=== PATIENT | male | born 1960 | race Caucasian/White ===

== ENCOUNTER 2018-03-06 03:51 | Emergency (ER) | payer MEDICARE, SELFPAY ==
[2018-03-06 03:52] VITALS: BP 170/95; PULSE 83; RESP 16; TEMP 36.5; O2SAT 97; BMI 34.1
--- NOTE | 2018-03-06 04:32 | RAD_ITS ---
STUDY: X-RAY - SOFT TISSUE NECK REASON FOR EXAM: Male, 57 years old. Pain TECHNIQUE: 2 view(s) of the neck were obtained. COMPARISON: None. FINDINGS: Normal visualized nasopharynx, oropharynx, hypopharynx. Normal epiglottis. Normal visualized subglottic tracheal air column. Normal prevertebral soft tissue structures. Normal visualized osseous structures. Left carotid calcifications. RAD/Neck for Soft Tissue IMPRESSION: No acute soft tissue abnormality is detected. Electronically Signed: Zackary Vivas MD at 6:01 EDT Tel , Service support ,
--- NOTE | 2018-03-06 04:34 | ED.DCSUM_ITS ---
- ER Visit Summary Date of Service: 03/06/18 Chief Complaint: Sore throat History of Present Illness: The patient is a 57 M 2 day history worsening sore throat. No fevers. No cough. 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 States intermittent flares. However with increasing neck and back pain has been chronic. He is on 60 mg MS Contin twice daily along with breakthrough Percocets written by his PCP. States he has been on this dose for a while. No new injuries. No dyspnea. No nausea or vomiting. Physical Examination: General: Alert and oriented ?3, no acute distress HEENT: Normocephalic, atraumatic. Posterior pharyngeal erythema, no exudates. 2+ symmetric tonsils. Uvula midline. No trismus. Airway patent. Moist mucosa membranes Neck: supple, anterior lymphadenopathy mild tenderness to palpation. No stridor. Cardiovascular: Regular rate and rhythm, no murmurs Respiratory: Normal breath sounds, symmetric, no distress Abdomen: Soft, nontender, nondistended Extremities: Nontender, no edema, pulses intact ?4 Neuro: no focal neurological deficits. Test Results: Rapid strep negative. Soft tissue x-ray neck negative. Emergency Department Course and Treatment: Patient vital signs stable. Posterior pharyngeal erythema noted. Airway patent. She with Decadron. Rapid strep negative. X-ray soft tissue also negative. Patient history of glossopharyngeal neuralgia which may complicate his symptoms. With his back pain and throat pain he was given subcu morphine dosing. States initial improvement of his back however symptoms return. He has been on his pain regimen for a while, discussed or could be a tolerance to his current dosing. However adjustments will need to be performed by his primary care provider who is prescribing the prescriptions. Patient understands. He was discharged with outpatient follow-up. Treatment Plan: [] Disposition: Discharge Impression: 1. Acute pharyngitis 2. Chronic neck and back pain This note was generated with [employer] dictation software. It may contain incorrect words, spelling, and punctuation that were not noted in review of the chart prior to signing ED Disposition - Plan for ED Patient: Disposition: Home or Assisted Living Chief Complaint: Other, Pain/Inj Diagnosis: Acute pharyngitis, History of chronic back pain Instructions: ED Chronic Pain Management, Self-Care for Sore Throats Referrals: Patricio Dave III, MD [Primary Care Provider] - 3-5 Days if not improving
[2018-03-06] MEDS: morphine 10 MG/ML Syringe SC (05:01)
[2018-03-06 06:28] VITALS: BP 168/99; PULSE 78; RESP 16; O2SAT 98
--- NOTE | 2018-03-06 06:29 | ED.RN ---
PT GIVEN WRITTEN AND VERBAL DISCHARGE INSTRUCTIONS. PT VERBALIZES UNDERSTANDING. PT STRONGLY EDUCATED NOT TO DRIVE AFTER HAVING NARCOTIC PAIN MEDICATION. PT REPORTS THAT HE HAS A RIDE COMING, AND AMBULATES OUT OF DEPT WITHOUT ASSISTANCE FROM STAFF.
== END 2018-03-06 06:33 | disposition home or self-care (01) ==
PROVIDERS: Emergency Provider Emergency Medicine; Family Provider Family Medicine; PCP Family Medicine
DX: J02.9 Acute pharyngitis, unspecified (principal); M54.2 Cervicalgia; M54.9 Dorsalgia, unspecified; G89.29 Other chronic pain; I10 Essential (primary) hypertension; Z79.899 Other long term (current) drug therapy
CPT/HCPCS: 70360; 87880; 96372; 99283

== ENCOUNTER 2018-06-01 09:57 | Emergency (ER) | payer MEDICARE, SELFPAY ==
[2018-06-01 09:58] VITALS: BP 180/90; PULSE 76; RESP 16; TEMP 36.9; O2SAT 98; BMI 32.5
--- NOTE | 2018-06-01 10:18 | ED.VISSUMM ---
- ER Visit Summary Date of Service: 06/01/18 Chief Complaint: [Request for medication refill and narcotic withdrawal] History of Present Illness: The patient is a 57 M [presents to the emergency department with complaint of running out of his pain medication yesterday. Patient has been on chronic narcotics for years and has been treated by Dr. Patricio Dave with Oxy Contin and oxycodone. Patient states that he had an insurance issue in November of this year where it took several weeks to approve his OxyContin. Patient at that time was taking extra oxycodone to compensate and therefore has been running out of oxycodone before his prescription is due and running out of his asked the content as he is compensating with OxyContin when his Percocet runs out. Patient is scheduled to go to [facility] tomorrow and attempt to try to come off of some of the narcotics. Patient has history of chronic neck and back pain. Patient has been through pain management. Today patient feeling nauseated and has vomited ?3. Patient states that his arms and legs feel like they are on fire. He denies any new injuries. This is his chronic pain and is no different than usual.] Physical Examination: [HEENT-PERRLA, EOMI. Cranial nerves II through XII grossly intact. TMs clear. Mucous membranes moist. No adenopathy. Cardiovascular-regular rate and rhythm without murmur or ectopy Lungs-clear to auscultation, chest wall stable without crepitus or subcu emphysema Abdomen-normoactive bowel sounds, soft, nontender, no rebound or rigidity, no peritoneal signs. Back exam-patient has diffuse tenderness to the lumbar and thoracic paraspinal musculature. Negative straight leg raises. Deep tendon reflexes plus out of 4 bilaterally in the upper and lower extremities. Extremities-intact ?4, normal range of motion, normal pulses, atraumatic] Test Results: [None indicated] Emergency Department Course and Treatment: [Patient given 1 mg of Dilaudid IM with 4 mg of Zofran IM.] Treatment Plan: [Patient to keep his appointment tomorrow and also to discuss further management with his primary care physician. 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 I did perform an oars report and it was noted that patient has been over the last year getting his prescription medications from Dr. Patricio Dave.] Disposition: [Discharged home in stable condition] Impression: [Narcotic withdrawal Acute exacerbation of chronic back pain] This note was generated with [employer] dictation software. It may contain incorrect words, spelling, and punctuation that were not noted in review of the chart prior to signing ED Disposition - Plan for ED Patient: Chief Complaint: Med Refill Referrals: Patricio Dave III, MD [Primary Care Provider] -
--- NOTE | 2018-06-01 10:23 | ED.DCSUM_ITS ---
- ER Visit Summary Date of Service: 06/01/18 Chief Complaint: [Request for medication refill and narcotic withdrawal] History of Present Illness: The patient is a 57 M [presents to the emergency department with complaint of running out of his pain medication yesterday. Patient has been on chronic narcotics for years and has been treated by Dr. Patricio Dave with Oxy Contin and oxycodone. Patient states that he had an insurance issue in November of this year where it took several weeks to approve his OxyContin. Patient at that time was taking extra oxycodone to compensate and therefore has been running out of oxycodone before his prescription is due and running out of his asked the content as he is compensating with OxyContin when his Percocet runs out. Patient is scheduled to go to [facility] tomorrow and attempt to try to come off of some of the narcotics. Patient has history of chronic neck and back pain. Patient has been through pain management. Today patient feeling nauseated and has vomited ?3. Patient states that his arms and legs feel like they are on fire. He denies any new injuries. This is his chronic pain and is no different than usual.] Physical Examination: [HEENT-PERRLA, EOMI. Cranial nerves II through XII grossly intact. TMs clear. Mucous membranes moist. No adenopathy. Cardiovascular-regular rate and rhythm without murmur or ectopy Lungs-clear to auscultation, chest wall stable without crepitus or subcu emphysema Abdomen-normoactive bowel sounds, soft, nontender, no rebound or rigidity, no peritoneal signs. Back exam-patient has diffuse tenderness to the lumbar and thoracic paraspinal musculature. Negative straight leg raises. Deep tendon reflexes plus out of 4 bilaterally in the upper and lower extremities. Extremities-intact ?4, normal range of motion, normal pulses, atraumatic] Test Results: [None indicated] Emergency Department Course and Treatment: [Patient given 1 mg of Dilaudid IM with 4 mg of Zofran IM.] Treatment Plan: [Patient to keep his appointment tomorrow and also to discuss further management with his primary care physician. 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 I did perform an oars report and it was noted that patient has been over the last year getting his prescription medications from Dr. Patricio Dave.] Disposition: [Discharged home in stable condition] Impression: [Narcotic withdrawal Acute exacerbation of chronic back pain] This note was generated with [employer] dictation software. It may contain incorrect words, spelling, and punctuation that were not noted in review of the chart prior to signing ED Disposition - Plan for ED Patient: Chief Complaint: Med Refill Referrals: Patricio Dave III, MD [Primary Care Provider] -
--- NOTE | 2018-06-01 10:25 | DCINST.ED_ITS ---
ED Disposition - Plan for ED Patient: Chief Complaint: Med Refill Instructions: Med Refill Prescriptions: Oxycodone HCl/Acetaminophen [Percocet 10-325 mg Tablet] 1 tab PO Q6H PRN PRN # 20 tab PRN Reason: Pain Ondansetron [Zofran Odt] 4 mg PO Q8H PRN PRN #10 tab PRN Reason: Nausea Referrals: Patricio Dave III, MD [Primary Care Provider] - 3-5 Days
[2018-06-01] MEDS: Ondansetron 4 MG/2 ML Vial IM (10:30)
[2018-06-01] MEDS: HYDROmorphone 1 MG/ML Syringe IM (10:30)
[2018-06-01 11:02] VITALS: BP 154/85; PULSE 70; RESP 17; O2SAT 95
--- NOTE | 2018-06-01 12:15 | ED.DEP ---
ED Disposition - Plan for ED Patient: Disposition: Home or Assisted Living Chief Complaint: Med Refill Instructions: Med Refill Prescriptions: Hydrocodone/Acetaminophen [[place] 10-325 Tablet] 1 ea PO Q6H PRN PRN #20 tab PRN Reason: Pain Oxycodone HCl/Acetaminophen [Percocet 10-325 mg Tablet] 1 tab PO Q6H PRN PRN #20 tab PRN Reason: Pain Ondansetron [Zofran Odt] 4 mg PO Q8H PRN PRN #10 tab PRN Reason: Nausea Referrals: Patricio Dave III, MD [Primary Care Provider] - 3-5 Days
== END 2018-06-01 11:17 | disposition home or self-care (01) ==
LOC: ED 11:15
PROVIDERS: Emergency Provider Emergency Medicine; Family Provider Family Medicine; PCP Family Medicine
DX: F11.23 Opioid dependence with withdrawal (principal); R11.2 Nausea with vomiting, unspecified; T40.2X5A Adverse effect of other opioids, initial encounter; Y92.9 Unspecified place or not applicable; G89.29 Other chronic pain; M54.2 Cervicalgia; M54.9 Dorsalgia, unspecified; Z79.899 Other long term (current) drug therapy
CPT/HCPCS: 96372; 99282; A4216; J2405

== ENCOUNTER → 2018-06-20 13:28 | Outpatient (CLI) | payer MEDICARE, SELFPAY ==
--- NOTE | 2018-06-20 13:34 | RAD_ITS ---
STUDY: X-RAY - CERVICAL SPINE REASON FOR EXAM: Male, 58 years old. Chronic neck pain. TECHNIQUE: Frontal, lateral, and swimmer's view(s) of the cervical spine were obtained. COMPARISON: None FINDINGS: Normal anterior atlantoaxial articulation. Normal odontoid process. There is straightening of the normal cervical lordosis. Normal vertebral bodies and endplates. Normal disc space heights. The soft tissue structures are unremarkable. There is no demonstrated fracture of the cervical spine. RAD/Cerv Spine 2 or 3 Views IMPRESSION: No fracture. Disc spaces are well preserved. Straightening of the cervical lordosis. Electronically Signed: Riley Fisher MD at 14:52 EDT , Service support ,
--- NOTE | 2018-06-20 13:44 | RAD_ITS ---
STUDY: X-RAY - THORACIC SPINE REASON FOR EXAM: Male, 58 years old. Chronic back pain. TECHNIQUE: Frontal, lateral, and swimmer's view(s) of the thoracic spine were obtained. COMPARISON: None. FINDINGS: Normal kyphosis of the thoracic spine. There is no substantial scoliosis. There is mild multilevel endplate spondylosis of the thoracic vertebrae. Normal disc space heights. There is no fracture. The soft tissue structures are unremarkable. RAD/Thoracic Spine 2 Views IMPRESSION: Mild spurring. No fracture. Electronically Signed: Riley Fisher MD at 14:53 EDT , Service support ,
== END ==
PROVIDERS: Family Provider Family Medicine; PCP Family Medicine; Visit Provider Anesthesiology Pain Medicine
DX: M54.2 Cervicalgia (principal); M54.9 Dorsalgia, unspecified
CPT/HCPCS: 72040; 72070

== ENCOUNTER 2018-08-02 08:30 | Outpatient (RCR) | payer MEDICARE, SELFPAY ==
--- NOTE | 2018-07-22 08:27 | HP.PTEVAL ---
Patient's Visit Information ARLETTE TURNER is a 58 year old M referred to Physical Therapy by Lacie Alba with a diagnosis of arm and neck pain. Date of Evaluation: 07/22/18 Physical Therapist: Evgeny Thomas, PT, - Visit Plan Frequency: 2x /Week Duration: 4 Weeks Plan: C/S Tx, DTR, scap stab ex's, postural edu, and HEP - Subjective Subjective: Pt reports he has had upper L back pain for at least 10 years. Pt notes he had 2 brain surgeries in the past, 15-20 years ago respectively due to cranial neuralgia on 7th and 9th cranial nerve. Pt notes his L upper back pain remains constant, but he notes the more work he does, the worse it gets. Pt reports after a hard days work, he hurts worse the next day. Pain is described as a bad ache that sometimes ojeda. Pt denies neck pain on this date, but notes his L neck is very stiff. Pt notes sleep difficulty secondary to the pain. Pt has had recent xrays, but he has no heard back from him. Pt reports he received and injection into his upper L back about a month ago, and notes that it helped his back pain, but caused him to have pain in the L UE from his shoulder to his hand. 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 B bicepital reflex= 1/3. Palpation: Pt is tender along the T/S in the interscapular region. There is also sig muscle guarding along the cervical spine. No obvious deformity present this date. ROM: C/S is limited most with retraction, L SB, L rot. All other movements are WNL. MMT: B UE is 5/5 throughout, but L UE provokes pain in his L upper back. Repeated movements: protraction 10x2 radiates sx's into L upper back., retraction 10x2 radiates sx's into L upper back. C/S compression produces L upper back sx's, and c/s traction decreases sx's - Goals Goal 1:: Decrease neck pain x 50% to aid with sleep Goal Time Frame: 2-4 Weeks Goal 2:: Increase C/S ROM x 1 grade to aid with driving Goal Time Frame: 2-4 Weeks Goal 3:: Decrease F and I of L UE sx's x 25% to aid with IADL's Goal Time Frame: 2-4 Weeks Goal 4:: I with HEP Goal Time Frame: 2-4 Weeks - Rehabilitation Potential Physical Therapy Diagnosis: Pt has L upper back pain, L UE radiculopathy, and limited c/s rom secondary to L cervical spine pathology Rehabilitation Potential: Good - Anticipated Interventions Patient/Client Instruction: Educate patient on: Condition, Plan of Care For the Purpose of:: To improve self management Therapeutic Exercise to Include: Strength training, Postural training, Active ROM, Scapular Strength/Stabilization For the Purpose of:: To decrease pain, To increase ROM, To increase tolerance to activity/condition/position Manual Therapy Techniques to Include: Soft tissue mobilization For the Purpose of:: To decrease pain Intermittent cervical traction: Yes For the Purpose of:: To decrease pain Thank you for the opportunity to evaluate your patient. For Medicare and Medicare HMO plans, please review the plan of care and approve it. It will need to be FAXED BACK to us at [phone] for Medicare purposes. Please let me know if there are questions or concerns regarding this plan of care. Physician Signature: Date:
--- NOTE | 2018-08-18 15:19 | HP.PTDCNRP_ITS ---
HP - Discharge Summary (1) - Patient Information ARLETTE TURNER was seen in my office for initial evaluation on 07/22/18. The following Plan of Care was established for this patient: Initial Frequency: 2x /Week Initial Duration: 4 Weeks - Anticipated Interventions Patient/Client Instruction: Educate patient on: Condition, Plan of Care For the Purpose of:: To improve self management Therapeutic Exercise to Include: Strength training, Postural training, Active ROM, Scapular Strength/Stabilization For the Purpose of:: To decrease pain, To increase ROM, To increase tolerance to activity/condition/position Manual Therapy Techniques to Include: Soft tissue mobilization For the Purpose of:: To decrease pain Intermittent cervical traction: Yes For the Purpose of:: To decrease pain This patient was last seen in our office . Pertinent comments regarding their Physical therapy will appear below: Pt was treated for 3 PT visits for his shoulder and neck pain through the date of 08/02/18. Pt did not show for his remaining 3 appointments through todays date , and is therefore discontinued at this time. At this point I will be discontinuing this patient from physical therapy. I would be happy to see this patient again in the future if found appropriate by the physician. Thank you! Evgeny Thomas, PT,
== END 2018-08-02 19:00 | disposition home or self-care (01) ==
LOC: PT 08:30
PROVIDERS: Family Provider Family Medicine; PCP Family Medicine; Visit Provider Anesthesiology Pain Medicine
DX: M54.2 Cervicalgia (principal); M79.603 Pain in arm, unspecified
CPT/HCPCS: 97012; 97162

== ENCOUNTER 2020-08-21 12:49 | Emergency (ER) | payer MEDICARE, SELFPAY ==
[2020-08-21 12:50] VITALS: BP 161/93; PULSE 82; RESP 18; TEMP 36.6; O2SAT 97; BMI 34.8
--- NOTE | 2020-08-21 13:07 | ED.DCSUM_ITS ---
- ER Visit Summary Date of Service: 08/21/20 Chief Complaint: Left forearm laceration History of Present Illness: The patient is a 60 M presenting with left forearm laceration. Patient was using a utility knife with his right hand. It slipped and accidentally cut his left forearm. No other injuries. Last tetanus is unknown. Physical Examination: Vitals are stable. Patient is afebrile. Alert no acute distress. HEENT exam is unremarkable. Neck is supple. Lungs are clear and equal bilaterally. Heart is regular rate and rhythm. Extremities 3 cm volar left forearm laceration. Normal tendon function. Normal distal pulses. Skin is warm and dry. No focal neurologic deficit. Remainder of exam is unremarkable. Emergency Department Course and Treatment: Patient was given Adacel IM. Wound was irrigated. Anesthetized with lidocaine. 4, 5-0 simple sutures were placed. Patient tolerated this well. Advised wound care instructions. Advised to follow-up with primary care physician. Advised return to ED for worsening complaints. Disposition: Discharge home Impression: Left forearm laceration, laceration repair This note was generated with [employer] dictation software. It may contain incorrect words, spelling, and punctuation that were not noted in review of the chart prior to signing ED Disposition - Plan for ED Patient: Instructions: ED Laceration All Closures Referrals: Patricio Dave III, MD [Primary Care Provider] -
--- NOTE | 2020-08-21 13:18 | ED.DEP ---
ED Disposition - Plan for ED Patient: Instructions: ED Laceration All Closures Referrals: Patricio Dave III, MD [Primary Care Provider] -
[2020-08-21] MEDS: Diphth,Pertuss(Acell),Tet Vac 0.5 ML Vial IM (13:25)
[2020-08-21 14:08] VITALS: BP 138/81; PULSE 80; RESP 14; O2SAT 97
== END 2020-08-21 14:10 | disposition home or self-care (01) ==
LOC: ED 13:20
PROVIDERS: Emergency Provider Emergency Medicine; PCP Family Medicine
DX: S51.812A Laceration without foreign body of left forearm, initial encounter (principal); W26.0XXA Contact with knife, initial encounter; Y93.9 Activity, unspecified; Y92.9 Unspecified place or not applicable; Y99.9 Unspecified external cause status; I10 Essential (primary) hypertension; Z23 Encounter for immunization; Z79.899 Other long term (current) drug therapy
CPT/HCPCS: 12002; 90471; 90715; 99283

== ENCOUNTER → 2023-03-23 | Outpatient (CLI) | payer MEDICARE, SELFPAY ==
--- NOTE | 2023-03-23 13:46 | ST.MBS ---
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 Medical History: Zackary Patel is a 62-year-old male with a history of 2 brain surgeries in the past, 12-20 years ago respectively, due to cranial neuralgia on 7th?and 9th?cranial nerve, with plans for a third surgery. Pt was hoarse 9 months following surgery due to left vocal fold paralysis, which has since improved but never returned to patient?s baseline. Patient reports he has since had swallowing difficulty, occurring about twice a month, occasionally feeling like foods, drinks, and saliva enter airway, resulting in choking/coughing episodes. He has not required the Heimlich in the past. He denies eating with a quick rate. Patient reported additional history of meningitis, shoulder surgery, gall bladder surgery, and appendix removal. Pt denies odynophagia. Current Diet Ordered: Regular / Thin Dentition: WNL Mental Status: WNL Respiratory Status: Oxygenating on Room Air - Penetration-Aspiration Scale Penetration-Aspiration Scale: OBJECTIVE ASSESSMENT OF SWALLOW FUNCTION (QUANTITATIVE ? PER TRIAL): PENETRATION / ASPIRATION SCALE (TURCIOS): 1 = does not enter airway 2 = enters airway/above vocal folds/ejected 3 = enters airway/above vocal folds/not ejected 4 = enters airway/contacts vocal folds/ejected 5 = enters airway/contacts vocal folds/not ejected 6 = enters airway/below vocal folds/ejected 7 = enters airway/below vocal folds/not ejected despite effort 8 = enters airway/below vocal folds/no effort VIDEOFLOROSCOPIC SCALE SCORE (TURCIOS): Grade I = aspiration of material that has penetrated into the laryngeal vestibule, intact cough reflex Grade II = aspiration < 10 % of the bolus, intact cough reflex Grade III = aspiration of < 10 % of the bolus, reduced cough reflex or aspiration of > 10 % of the bolus, intact cough reflex Grade IV = aspiration of > 10 % of the bolus, reduced cough reflex - Penetration-Aspiration Scale Score Thin Liquid via teaspoon Result: 1= does not enter airway Thin Liquid via teaspoon Trial 2 Result: 1= does not enter airway Thin Liquid via small single sip from cup Result: 1= does not enter airway [place] Thick Liquid via small single sip from cup Result: 1= does not enter airway Pudding via teaspoon with esophageal screen Result: 1= does not enter airway 1/2 Cookie Result: 1= does not enter airway Thin Liquid via single sip from straw Result: 1= does not enter airway Thin Liquid via sequential sips from straw Result: 1= does not enter airway - Oral Phase Labial Seal: No Labial Escape Tongue Control During Bolus Hold: Posterior escape of greater than half of bolus Bolus Preparation/Mastication: Timely and efficient chewing and mashing Bolus Transport/Lingual Motion: Delayed initiation of tongue motion Oral Residue: Trace residue lining oral structures - Pharyngeal Phase Initiation of Pharyngeal Swallow: Bolus head in pyriforms Soft Palate Elevation: Trace column of contrast/air between soft palate and pharyngeal wall Laryngeal Elevation: Comp. Superior move thyroid cart w/comp. apprx arytenoid cart-epig pet Anterior Hyoid Excursion: Partial anterior movement Epiglottic Movement: Complete inversion Laryngeal Vestibule Closure at Height of Swallow: Complete; no air/contrast in laryngeal vestibule Pharyngeal Stripping Wave: Present - complete Pharyngoesophageal Segment Opening: Complete distension and complete duration; no obstruction of flow Tongue Base Retraction: Trace column of contrast between tongue base & post. pharyngeal wall Pharyngeal Residue: Trace residue within or on pharyngeal structures - Esophageal Phase Esophageal Clearance: Esophageal retention - minimal pudding in lower esophagus - Diagnosis/Impression Diagnosis: Oropharyngeal swallow function grossly WNL Impression: Overall, oropharyngeal swallow function is grossly WNL. Decreased anterior hyoid excursion; however, patient demonstrated excellent laryngeal elevation and airway closure during the swallow. No laryngeal penetration or aspiration observed during the study. Trace oral and pharyngeal residues after the swallow. Minimal retention of pudding in lower esophagus. - Recommendations Diet: Regular Textures, Thin Liquids Compensatory Strategies: Small Bites, Small Sips, Slow Rate, Sitting upright Recommend Repeat Modified Barium Swallow: TBD - Consider repeat MBSS if worsening swallow function s/p upcoming brain surgery for neuralgia of cranial nerves Need for Skilled Speech Therapy Services: No Education Completed: 1. Described result of evaluation. - Encouraged follow up with physician to review full results of MBSS. - Status Active ST Patient: Active - Contact Information [facility] Speech Therapy:: María Elena Krishnan M.A. [facility] Speech-Language Pathologist [facility] [address] [place] [address] [email or web address] [phone] 03/23/23 14:01
== END | disposition home or self-care (01) ==
DX: G52.1 Disorders of glossopharyngeal nerve (principal)
CPT/HCPCS: 74230; 92611

== ENCOUNTER → 2024-11-09 | Outpatient (CLI) | payer MEDICARE, SELFPAY ==
--- NOTE | 2024-11-09 13:20 | CT_ITS ---
STUDY: CT ABDOMEN AND PELVIS WITH CONTRAST REASON FOR EXAM: Male, 64 years old. NAUSEA,ABD PAIN RADIATION DOSAGE (If Supplied By Facility): CTDIvol = ( 14.32 ) mGy, DLP = ( 1119.88 ) mGycm TECHNIQUE: Transaxial images were obtained from the dome of the diaphragm to the symphysis pubis with oral contrast. Oral and amp; IV Gastrografin and amp; 100mL Isovue-370 was administered. Sagittal and coronal images were reconstructed. Individualized dose optimization techniques were used for this CT. COMPARISON: Comparison is made with prior study dated May 30, 2012. FINDINGS: The visualized lung bases are unremarkable. The visualized portions of the heart are within normal limits. Normal liver. Mildly dilated central intrahepatic biliary ducts. The patient is status post cholecystectomy. There has been no change since prior study. Normal spleen. Normal pancreas. Normal bilateral adrenal glands. Normal right kidney. Normal left kidney. Incidental note is made of a left retroaortic renal vein. Normal visualized stomach. Normal small intestine. There are scattered colonic diverticula consistent with diverticulosis. The appendix is visualized and appears normal. There is scattered atherosclerotic calcification of the abdominal aorta, without a demonstrated aneurysm. Normal inferior vena cava. Normal retroperitoneum. Normal urinary bladder. There are prostatic calcifications. Normal abdominal wall. There are mild degenerative changes of the visualized lumbar spine. CT/Abdomen/Pelvis WITH Contrast IMPRESSION: Status post cholecystectomy. Stable central intrahepatic biliary ductal dilatation. Electronically Signed: Rodolfo Coughlin MD at 14:20 EST ,
[2024-11-09 13:37] LABS: CREATININE FINGERSTICK 1.1 mg/dL (0.70-1.30); EGFR FINGERSTICK > 60.0000 mL/min (>60)
== END | disposition home or self-care (01) ==
DX: R11.0 Nausea (principal); R10.84 Generalized abdominal pain; K59.00 Constipation, unspecified
CPT/HCPCS: 74177; Q9967